=== PATIENT | female | born 1975 | race Caucasian/White ===

== ENCOUNTER 2016-05-10 16:02 | Emergency (ER) | payer BC ==
[2016-05-10 16:20] VITALS: O2SAT 98
--- NOTE | 2016-05-10 16:25 | EDPHY ---
H & P Stated Complaint: headache, light headed onset 1300--resolving but still feels "disconnected" Time Seen by Provider: 05/10/16 16:23 HPI/ROS: CHIEF COMPLAINT: Scotoma, new onset headache HISTORY OF PRESENT ILLNESS: The patient presents to the ED after she developed a visual scotoma at approximately noon. The patient's symptoms the patient then developed symptoms of a bilateral retro-orbital headache which was initially a 6/10. The patient has no prior history of headache. Her symptoms have improved but not resolved. She denies any fall or trauma. She denies neck pain. She denies cervical manipulation. She has no complaints of peripheral numbness or weakness. The patient denies any significant past medical history. She does not take medications. There is no significant family medical history. REVIEW OF SYSTEMS: A comprehensive 10 point review of systems is otherwise negative aside from elements mentioned in the history of present illness. Source: Patient Exam Limitations: No limitations - Personal History LMP (Females 10-55): 1-7 Days Ago Current Tetanus/Diphtheria Vaccine: Unsure Current Tetanus Diphtheria and Acellular Pertussis (TDAP): Unsure - Medical/Surgical History Hx Asthma: No Hx Chronic Respiratory Disease: No Hx Diabetes: No Hx Cardiac Disease: No Hx Renal Disease: No Other PMH: allergies. asthma - Social History Smoking Status: Never smoked - Physical Exam Exam: General Appearance: Alert, no distress Eyes: Pupils equal and round no pallor or injection ENT, Mouth: Mucous membranes moist Respiratory: There are no retractions, lungs are clear to auscultation Cardiovascular: Regular rate and rhythm Gastrointestinal: Abdomen is soft and nontender, no masses, bowel sounds normal Neurological: A&O, normal motor function, normal sensory exam, normal cranial nerves Skin: Warm and dry, no rashes Musculoskeletal: Neck is supple nontender Extremities: symmetrical, full range of motion Constitutional: Initial Vital Signs Temperature (C) 36.7 C 05/10/16 16:16 Heart Rate 76 05/10/16 16:16 Respiratory Rate 16 05/10/16 16:16 Blood Pressure 141/96 H 05/10/16 16:16 O2 Sat (%) 98 05/10/16 16:16 O2 Delivery Mode Room Air Allergies/Adverse Reactions: No Known Allergies Allergy (Unverified 05/10/16 16:15) Home Medications: Medication Instructions Recorded Advair 100/50 (*) 05/10/16 Singvarunir 05/10/16 Medical Decision Making - Diagnostics Imaging: MRI brain without contrast: Negative for intracranial abnormality. Study results reported to me by Dr. Elias Mcduffie. ED Course/Re-evaluation: The patient presents to the emergency department with likely new onset migraine headache. The patient is noted to be neurologically intact. She complains of 4/ 10 bifrontal headache. She has no clinical evidence of meningitis. She has no history of physical exam findings which would suggest a vascular dissection. Given the patient's age, a brain MRI has been ordered for evaluation of her headache. MRI of the brain demonstrates no evidence of acute disease. I re-evaluated the patient at 6:35 p.m. and she is feeling much better. Her neurologic examination remains normal. She has no clinical evidence of meningitis. Her symptoms have markedly improved after receiving IV Toradol and Reglan. At this point time I do feel the patient can be discharged home with a likely resolution of a first-time migraine. She will be discharged home with customary aftercare instructions and return precautions. Differential Diagnosis: Differential diagnosis migraine headache, scientology arteritis, intracranial hemorrhage, intracranial mass - Data Points Laboratory Results: Laboratory Results 05/10/16 16:44 05/10/16 16:55 05/10/16 05/10/16 16:55 16:44 WBC 6.87 10^3/uL 10^3/uL (3.80-9.50) RBC 4.57 10^6/uL 10^6/uL (4.18-5.33) Hgb 14.4 g/dL g/dL (12.6-16.3) Hct 41.6 % % (38.0-47.0) MCV 91.0 fL fL (81.5-99.8) MCH 31.5 pg pg (27.9-34.1) MCHC 34.6 g/dL g/dL (32.4-36.7) RDW 12.6 % % (11.5-15.2) Plt Count 243 10^3/uL 10^3/uL (150-400) MPV 11.1 fL fL (8.7-11.7) Neut % (Auto) 70.3 % % (39.3-74.2) Lymph % (Auto) 21.7 % % (15.0-45.0) Stevens % (Auto) 6.7 % % (4.5-13.0) Eos % (Auto) 0.0 % L % (0.6-7.6) Baso % (Auto) 0.6 % % (0.3-1.7) Nucleat RBC Rel Count 0.0 % % (0.0-0.2) Absolute Neuts (auto) 4.83 10^3/uL 10^3/uL (1.70-6.50) Absolute Lymphs (auto) 1.49 10^3/uL 10^3/uL (1.00-3.00) Absolute Monos (auto) 0.46 10^3/uL 10^3/uL (0.30-0.80) Absolute Eos (auto) 0.00 10^3/uL L 10^3/uL (0.03-0.40) Absolute Basos (auto) 0.04 10^3/uL 10^3/uL (0.02-0.10) Absolute Nucleated RBC 0.00 10^3/uL 10^3/uL (0-0.01) Immature Gran % 0.7 % % (0.0-1.1) Immature Gran # 0.05 10^3/uL 10^3/uL (0.00-0.10) Sodium 143 mEq/L mEq/L (134-144) Potassium 3.9 mEq/L mEq/L (3.5-5.2) Chloride 105 mEq/L mEq/L (97-110) Carbon Dioxide 23 mEq/l mEq/l (22-31) Anion Gap 15 mEq/L mEq/L (8-16) BUN 6 mg/dL L mg/dL (7-23) Creatinine 0.8 mg/dL mg/dL (0.6-1.0) Estimated GFR > 60 Glucose 99 mg/dL mg/dL (70-100) Calcium 10.0 mg/dL mg/dL (8.5-10.4) Medications Given: Discontinued Medications Ketorolac Tromethamine (Toradol) 30 mg IVP EDNOW ONE Stop: 05/10/16 16:54 Last Admin: 05/10/16 17:04 Dose: 30 mg Metoclopramide HCl (Reglan Injection) 10 mg IVP EDNOW ONE Stop: 05/10/16 16:54 Last Admin: 05/10/16 17:07 Dose: 10 mg Departure - Departure Disposition: Home, Routine, Self-Care Clinical Impression: Migraine headache Condition: Good Instructions: Migraine Headache (ED) Additional Instructions: 1. Take Ibuprofen or Motrin 600 mg by mouth three times a day. 2. Please return to the ED for recurrent headache, worsening symptoms, numbness , weakness or other concerns. 3. Please follow up with your primary care provider as needed. Referrals: Eden Aleman PA [Primary Care Provider] - As per Instructions
[2016-05-10] MEDS ORDERED: KETOROLAC 30 MG/1 ML SDV IVP ONE (16:53)
[2016-05-10] MEDS ORDERED: METOCLOPRAMIDE 10 MG/2 ML VIAL IVP ONE (16:53)
[2016-05-10 17:06] LABS: % IMMATURE GRANULYOCYTES 0.7 % (0.0-1.1); ABSOLUTE IMMATURE GRANULOCYTES 0.05 10^3/uL (0.00-0.10); ADD DIFF? NO; ADD MORPH? NO; ADD SCAN? NO; ATYPICAL LYMPHOCYTE FLAG 20 (0-99); FRAGMENT RBC FLAG 0 (0-99); HEMATOCRIT 41.6 % (38.0-47.0); HEMOGLOBIN 14.4 g/dL (12.6-16.3); LEFT SHIFT FLG 10 (0-99); LIPEMIA HEMOLYSIS FLAG 90 (0-99); MEAN CELL HEMOGLOBIN 31.5 pg (27.9-34.1); MEAN CELL HEMOGLOBIN CONCENTR. 34.6 g/dL (32.4-36.7); MEAN PLATELET VOLUME 11.1 fL (8.7-11.7); PLATELET CLUMPS FLAG 0 (0-99); PLATELET COUNT 243 10^3/uL (150-400); RED BLOOD CELL COUNT 4.57 10^6/uL (4.18-5.33); RED CELL DISTRIBUTION WIDTH 12.6 % (11.5-15.2)
[2016-05-10 18:10] LABS: ANION GAP 15 mEq/L (8-16); CARBON DIOXIDE 23 mEq/l (22-31); CHLORIDE 105 mEq/L (97-110); CREATININE 0.8 mg/dL (0.6-1.0); GLOMERULAR FILTRATION RATE > 60; GLUCOSE 99 mg/dL (70-100); POTASSIUM 3.9 mEq/L (3.5-5.2); SODIUM 143 mEq/L (134-144)
[2016-05-10 18:55] VITALS: BP 132/64; PULSE 87; RESP 18; TEMP 98.2
== END 2016-05-10 18:55 | disposition home or self-care (01) ==
DX: G43.909 Migraine, unspecified, not intractable, without status migrainosus (principal)
CPT/HCPCS: 96374; J1885; J2765